=== PATIENT | female | born 1995 | race Hispanic/Latino ===

== ENCOUNTER 2019-12-15 20:42 | Emergency (ER) | payer SELFPAY ==
--- OUTSIDE RECORDS SUMMARY | 2019-12-15 20:44 | XMS REPORT ---
:1995 [facility] Address [address] [place] [address] [address] [place] [address] Care Team Providers Name Role Phone Unavailable Unavailable Unavailable Payers Payer Name Policy Type Policy Number Effective Date Expiration Date Problems This patient has no known problems. Allergies, Adverse Reactions, Alerts Allergy Allergy Status Severity Reaction(s) Onset Inactive Treating Comments Name Type Date Date Clinician No Known DA Active U 2014-02 Allergies -03 00:00:0 0 Medications This patient has no known medications.
--- NOTE | 2019-12-15 20:58 | EDPHYS ---
Physician Documentation [facility] Name: Timmy Sanchez Age: 24 yrs Sex: Female : 1995 Arrival Date: 12/15/2019 Time: 20:45 Bed 20 Private MD: ED Physician Wu Butler HPI: 12/14 20:58 This 24 yrs old Female presents to ER via Ambulatory with complaints of Work pm1 release. 20:58 Associated signs and symptoms: Pertinent negatives: abdominal pain, chest pain, pm1 congestion, cough, diarrhea, earache, headache, nasal discharge, shortness of breath, sore throat, vomiting. Patient presents to the ER with requests for work release. Patient reports subjective fever yesterday after getting fertility/hormonal shot in [place] yesterday. Patient without any fever today and she needs a work note to return to work. Patient works for [employer]. Patient without any complaints. 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 - Social history:: Smoking status: Patient denies any tobacco usage or history of. ROS: 20:58 Eyes: Negative for injury, pain, redness, and discharge, ENT: Negative for injury, pm1 pain, and discharge, Neck: Negative for injury, pain, and swelling, Cardiovascular: Negative for chest pain, palpitations, and edema, Respiratory: Negative for shortness of breath, cough, wheezing, and pleuritic chest pain, Abdomen/GI: Negative for abdominal pain, nausea, vomiting, diarrhea, and constipation, Back: Negative for injury and pain, MS/Extremity: Negative for injury and deformity, Skin: Negative for injury, rash, and discoloration, Neuro: Negative for headache, weakness, numbness, tingling, and seizure. 20:58 Constitutional: Positive for fever, resolved, Negative for poor PO intake. Exam: 20:58 Constitutional: This is a well developed, well nourished patient who is awake, alert, pm1 and in no acute distress. Head/Face: Normocephalic, atraumatic. Eyes: Pupils equal round and reactive to light, extra-ocular motions intact. Lids and lashes normal. Conjunctiva and sclera are non-icteric and not injected. Cornea within normal limits. Periorbital areas with no swelling, redness, or edema. ENT: Nares patent. No nasal discharge, no septal abnormalities noted. Tympanic membranes are normal and external auditory canals are clear. Oropharynx with no redness, swelling, or masses, exudates, or evidence of obstruction, uvula midline. Mucous membranes moist. Neck: Trachea midline, no thyromegaly or masses palpated, and no cervical lymphadenopathy. Supple, full range of motion without nuchal rigidity, or vertebral point tenderness. No Meningismus. Chest/axilla: Normal chest wall appearance and motion. Nontender with no deformity. No lesions are appreciated. Cardiovascular: Regular rate and rhythm with a normal S1 and S2. No gallops, murmurs, or rubs. Normal PMI, no JVD. No pulse deficits. Respiratory: Lungs have equal breath sounds bilaterally, clear to auscultation and percussion. No rales, rhonchi or wheezes noted. No increased work of breathing, no retractions or nasal flaring. Abdomen/GI: Soft, non-tender, with normal bowel sounds. No distension or tympany. No guarding or rebound. No evidence of tenderness throughout. Back: No spinal tenderness. No costovertebral tenderness. Full range of motion. Skin: Warm, dry with normal turgor. Normal color with no rashes, no lesions, and no evidence of cellulitis. MS/ Extremity: Pulses equal, no cyanosis. Neurovascular intact. Full, normal range of motion. 20:58 Neuro: Exam negative for acute changes, Orientation: is normal, Motor: is normal, moves all fours. Vital Signs: 20:46 BP 106 / 72; Pulse 79; Resp 16 S; Temp 97.3(O); Pulse Ox 100% ; Weight 77.11 kg (R); ca1 Height 5 ft. 0 in. (152.40 cm) (R); 20:46 Body Mass Index 33.20 (77.11 kg, 152.40 cm) ca1 MDM: 20:52 Patient medically screened. pm1 20:56 Data reviewed: vital signs. Data interpreted: Pulse oximetry: on room air is 100 %. pm1 Interpretation: normal. Counseling: I had a detailed discussion with the patient and/or guardian regarding: the historical points, exam findings, and any diagnostic results supporting the discharge/admit diagnosis, the need for outpatient follow up, to return to the emergency department if symptoms worsen or persist or if there are any questions or concerns that arise at home. Administered Medications: No medications were administered Disposition: :54 Co-signature as Attending Physician, Wu Butler MD. arleth Disposition: 12/15/19 20:57 Discharged to Home. Impression: Person with feared health complaint in whom no diagnosis is made. - Condition is Stable. - Work release form, Medication Reconciliation Form, Thank You Letter, Antibiotic Education, Prescription Opioid Use form. - Follow up: Emergency Department; When: As needed; Reason: Worsening of condition. Follow up: Private Physician; When: 2 - 3 days; Reason: Recheck today's complaints, Continuance of care, Re-evaluation by your physician. - Problem is new. - Symptoms have improved. Signatures: Wu Butler MD MD pkl Marinas, Patrick, LUMBER PILER LUMBER PILER pm1 Jose Melgar Cheryl RN RN ca1 Corrections: (The following items were deleted from the chart) 21:05 20:57 12/15/2019 20:57 Discharged to Home. Impression: Person with feared health wh complaint in whom no diagnosis is made. Condition is Stable. Forms are Medication Reconciliation Form, Thank You Letter, Antibiotic Education, Prescription Opioid Use. Follow up: Emergency Department; When: As needed; Reason: Worsening of condition. Follow up: Private Physician; When: 2 - 3 days; Reason: Recheck today's complaints, Continuance of care, Re-evaluation by your physician. Problem is new. Symptoms have improved. pm1
--- NOTE | 2019-12-15 20:58 | ER ---
Nurse's Notes [facility] Name: Timmy Sanchez Age: 24 yrs Sex: Female : 1995 Arrival Date: 12/15/2019 Time: 20:45 Bed 20 Private MD: Diagnosis: Person with feared health complaint in whom no diagnosis is made Presentation: 12/14 20:46 Chief complaint: Patient states: I had fever after I got a shot for my period ca1 to come back. I didn't go to work on that day. TI need a medical release form to go back to work tomorrow. Denies cough,, congestion and fever at this time. Coronavirus screen: Patient denies fever greater than 100.4F, cough, shortness of breath, or difficulty breathing. Proceed with normal triage process. Ebola Screen: Patient negative for fever greater than or equal to 101.5 degrees Fahrenheit, and additional compatible Ebola Virus Disease symptoms Patient denies exposure to infectious person. Patient denies travel to an Ebola-affected area in the 21 days before illness onset. No symptoms or risks identified at this time. Initial Sepsis Screen: Does the patient meet any 2 criteria? Yes Does the patient have a suspected source of infection? No. Patient's initial sepsis screen is negative. Risk Assessment: Do you want to hurt yourself or someone else? Patient reports no desire to harm self or others. Onset of symptoms was December 15, 2019. 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 - Social history:: Smoking status: Patient denies any tobacco usage or history of. Screenin:04 Abuse screen: Denies threats or abuse. Denies injuries from another. Nutritional wh screening: No deficits noted. Tuberculosis screening: No symptoms or risk factors identified. Fall Risk None identified. Assessment: 21:03 General: Appears in no apparent distress. Behavior is calm, cooperative, appropriate wh for age. Pain: Denies pain. Neuro: Level of Consciousness is awake, alert, obeys commands, Oriented to person, place, time, situation, Appropriate for age. Cardiovascular: Heart tones S1 S2. Respiratory: Airway is patent Respiratory effort is even, unlabored, Respiratory pattern is regular, symmetrical, Breath sounds are clear bilaterally. GI: Abdomen is flat, non-distended. : No signs and/or symptoms were reported regarding the genitourinary system. EENT: No signs and/or symptoms were reported regarding the EENT system. Derm: Skin is intact, is healthy with good turgor, Skin is pink, warm \T\ dry. normal. Musculoskeletal: Circulation, motion, and sensation intact. Vital Signs: 20:46 BP 106 / 72; Pulse 79; Resp 16 S; Temp 97.3(O); Pulse Ox 100% ; Weight 77.11 kg (R); ca1 Height 5 ft. 0 in. (152.40 cm) (R); 20:46 Body Mass Index 33.20 (77.11 kg, 152.40 cm) ca1 ED Course: 20:45 Patient arrived in ED. mr 20:49 Triage completed. ca1 20:50 Arm band placed on right wrist. ca1 20:52 Chris Doe NP is PHCP. pm1 20:52 Wu Butler MD is Attending Physician. pm1 21:02 Jose Melgar is Primary Nurse. 21:05 Patient has correct armband on for positive identification. Bed in low position. Call light in reach. Side rails up X 1. Pulse ox on. NIBP on. 21:05 No provider procedures requiring assistance completed. Patient did not have IV access during this emergency room visit. Administered Medications: No medications were administered Outcome: 20:57 Discharge ordered by . pm1 21:05 Discharged to home ambulatory. 21:05 Condition: stable 21:05 Discharge instructions given to patient, Instructed on discharge instructions, Demonstrated understanding of instructions. 21:05 Patient left the ED. Signatures: Bernadine Hines mr Chris Doe NP [employer] DIRECTOR pm1 Jose Melgar Antonella Pierce RN RN ca1 Corrections: (The following items were deleted from the chart) 20:51 20:46 Pulse 79bpm; Resp 16bpm; Spontaneous; Pulse Ox 100%; Temp 97.3F Oral; 77.11 kg ca1 Reported; Height 5 ft. 0 in. Reported; BMI: 33.2; ca1
[2019-12-15 21:35] VITALS: BP 106/72; TEMP 97.3; O2SAT 100
[2019-12-15] MEDS ORDERED: DIPHENHYDRAMINE 25 MG TAB/CAP ONE (21:44)
[2019-12-15] MEDS ORDERED: dexAMETHasone 10 MG/ML VIAL ONE (21:44)
[2019-12-15] MEDS ORDERED: FAMOTIDINE 20 MG TAB ONE (21:45)
== END 2019-12-15 21:05 | disposition home or self-care (01) ==
LOC: ER 20:42
DX: Z71.1 Person with feared health complaint in whom no diagnosis is made (principal)
CPT/HCPCS: 99283; J1100